=== PATIENT | female | born 1940 | race Caucasian/White ===

== ENCOUNTER 2016-06-24 17:45 | Emergency (ER) | payer MEDICARE, BC ==
[2016-06-24 18:09] LABS: BASOPHILS 0.7 % (0.0-2.0); EOSINOPHILS 1.2 % (0.0-6.0); EOSINOPHILS# 0.1 X 10^3uL (0.0-0.4); HEMATOCRIT 42.7 % (36.0-48.0); HEMOGLOBIN 14.5 g/dL (12.0-16.0); LYMPHOCYTES 31.8 % (20.0-40.0); LYMPHOCYTES# 2.1 X 10^3uL (0.8-3.8); MEAN CELL VOLUME 88.7 fL (84.0-102.0); MEAN CORPUSCULAR HEMOGLOBIN 30.2 pg (29.0-35.0); MEAN PLATELET VOLUME 8.9 fL (7.4-10.4); MONOCYTES 10.7 % (2.0-10.0); MONOCYTES# 0.7 X 10^3uL (0.2-1.0); NEUTROPHILS 55.6 % (54.0-75.0); NEUTROPHILS# 3.8 X 10^3uL (2.6-6.7); PLATELET COUNT 265 X 10^3uL (130-440); RED BLOOD COUNT 4.81 X 10^6uL (4.20-6.10); RED CELL DISTRIBUTION WIDTH 13.3 % (11.5-14.5); WHITE BLOOD COUNT 6.7 X 10^3uL (3.9-10.7)
[2016-06-24 18:17] LABS: BLOOD UREA NITROGEN 20 mg/dL (7-17); CALCIUM 9.6 mg/dL (8.4-10.2); CHLORIDE 105 mmol/L (98-107); CREATININE 0.8 mg/dL (0.5-1.0); EST GLOMERULAR FILTRATION RATE > 60 mL/min; GLUCOSE 93 mg/dL (70-100); POTASSIUM 4.2 mmol/L (3.5-5.1); SODIUM 143 mmol/L (137-145)
[2016-06-24 18:19] LABS: PARTIAL THROMBOPLASTIN TIME 26 sec (24-38)
--- NOTE | 2016-06-24 19:13 | ER NURSING DOCUMENTATION ---
Nurse's Notes [facility], [place] Name:Phyllis Pennington Age:75 yrs Sex:Female :1940 Arrival Date:06/24/2016 Time:17:45 BedTrauma A Private MD: Diagnosis:Cerebrovascular Accident (CVA)-vs. TIA Presentation: 06/24 17:46 Acuity: JOON 2 la 17:46 Presenting complaint: Patient states: at 1530 lost balance but did not fall, states she la was able to speak what she was thinking, but felt her right side was weak and had a facial droop. Upon arrival pt speech clear, no facial droop, right leg weaker than left. Accu check in field 89. Transition of care: Home. No acute neurological deficit is noted. 17:46 Method Of Arrival: EMS: 420 la Triage Assessment: 18:12 The onset of the patients symptoms was less than three hours ago. General: Appears la comfortable, Behavior is appropriate for age, cooperative. Pain: Denies pain. EENT: No deficits noted. Neuro: Level of Consciousness is awake, alert, obeys commands, Oriented to person, place, time, event, Data Entry Coordinator are equal bilaterally Moves all extremities. right leg weaker than left. Speech is normal, Facial symmetry appears normal, Pupils are PERRLA, Reports weakness in right leg. Cardiovascular: No deficits noted. Rhythm is sinus rhythm Chest pain is denied. Respiratory: Airway is patent Trachea midline Respiratory effort is even, unlabored, Respiratory pattern is regular, symmetrical. GI: No deficits noted. : No deficits noted. Derm: No deficits noted. Musculoskeletal: No deficits noted. Historical: - Allergies: Levaquin IV; IODINEIODINE CONTAINING; - Home Meds: 1. Lisinopril Oral 2. Remuron 3. Imipramine Oral 4. levothyroxine oral - PMHx: Brain aneurysm in 1970's; HYPERTENSION; Subconjunctival Hemorrhage (eye)(June 16, 2016); HYPOTHYROIDISM; - PSHx: HYSTERECTOMY; CHOLECYSECTOMY; - Tetanus: < 10 years. - Ebola Screening: : Patient negative for fever greater than or equal to 101.5 degrees Fahrenheit, and additional compatible Ebola Virus Disease symptoms. - Immunization history: Pneumococcal vaccine is up to date, Flu Vaccine < 1 year. - Social history: Smoking status: Patient states former smoker of tobacco. Screenin:16 Infectious Disease Risk None. Abuse screen: Denies threats or abuse. Nutritional la screening: No deficits noted. Assessment: 17:46 Reassessment: straight to CT, pt A & Ox3, speech clear, able to move herself over to CT la table on own, right leg a bit weaker than left. smile symmetrical. Hand grasps equal. 18:16 See Triage Assessment done by same RN. la Vital Signs: 17:46 BP 166 / 87 LA Sitting; Pulse 88; Resp 18; Temp 98.3(O); Pulse Ox 93% ; Weight 65.77 kg la (R); Height 5 ft. 5 in. (165.10 cm) (R); Pain 0/10; 17:56 BP 173 / 90 Sitting; Pulse 79; Resp 18; Pulse Ox 96% on R/A; Pain 0/10; la 18:17 BP 156 / 85 RA Sitting; Pulse 91; Resp 18; Pulse Ox 93% on R/A; la 17:46 Body Mass Index 24.13 (65.77 kg, 165.10 cm) la Ilana Coma Score: 18:52 Eye Response: spontaneous(4). Verbal Response: oriented(5). Motor Response: obeys cd commands(6). Total: 15. NIH Stroke Scale Scores: 17:46 NIHSS Score: 1 la ED Course: 17:46 Patient arrived in ED. ds 17:51 Baldemar Olivo MD is Attending Physician. cd 18:04 Brenda Duong is Primary Nurse. la 18:09 Triage completed. la 18:09 EKG done. (by ED staff). la 18:16 Valuables Remains with patient Patient has correct armband on for positive la identification. Placed in gown. Bed in low position. Call light in reach. Side rails up X2. library monitor on. Pulse ox on. NIBP on. Verbal reassurance given. Warm blanket given. Pillow given. 18:17 Labs drawn. By EMS. Maintain field IV. Site clean & dry. Gauge & site: 20g left wrist. la 18:20 EKG attached cb Administered Medications: No medications were administered Outcome: 18:19 Transferred: Patient will be transferred to: [facility]. Facility la Acceptance Time: June 24, 2016 at 18:11 Patient's face sheet was faxed to accepting facility. Face Sheet included patient's name, address, age, gender, contact information and insurance information. Patient will be transported by: [facility] ground. Report called to: ED senior ruby developer Faye Nurse and Physician Charting and Notes were sent to Accepting Facility. All tests and/or procedures with results, if applicable, were sent to accepting facility. 18:19 Condition: stable 18:19 Discharge Assessment: Patient awake, alert and oriented x 3. No cognitive and/or functional deficits noted. Patient verbalized understanding of disposition instructions. 19:05 ER care complete, transfer ordered by . deon 19:13 Patient left the ED. vannessa NIH Stroke Scale - NIH Stroke Score Date: 06/24/2016 Time: 17:46 Total Score = 1 1a. Level of Consciousness (LOC) - 0(Alert) 1b. Level of Consciousness (LOC) (Year & Age) - 0(Both) 1c. LOC Commands (Open & Closes Eyes/Bench Scientist) - 0(Both) 2. Best Gaze (Lateral Gaze Paresis) - 0(Normal) 3. Visual Field Loss - 0(No visual loss) 4. Facial Palsy - 0(Normal) 5a. Left Arm: Motor (10-second hold) - 0(No drift) 5b. Right Arm: Motor (10-second hold) - 0(No drift) 6a. Left Leg: Motor (5-second hold ? always test supine) - 0(No drift) 6b. Right Leg: Motor (5-second hold ? always test supine) - 1(Drift) 7. Limb Ataxia (finger/nose & heel/felix ? test with eyes open) - 0(Absent) 8. Sensory Loss (pinprick arms/legs/face) - 0(Normal) 9. Best Language: Aphasia (description/naming/reading) - 0(No aphasia) 10. Dysarthria (speech clarity ? read or repeat words) - 0(Normal) 11. Extinction and Inattention (visual/tactile/auditory/spatial/personal) - 0(No abnormality) Initials: la Signatures: Faye Dumont, RN RN cb Srot, Clarice, Reg Reg Baldemar Verdin MD MD cd Norman, David dnn Alexander, Linda la
--- NOTE | 2016-06-24 19:14 | ER PHYSICIAN DOCUMENTATION ---
Physician Documentation [facility] Name:Phyllis Pennington Age:75 yrs Sex:Female :1940 Arrival Date:06/24/2016 Time:17:45 BedTrauma A Private MD: Baldemar Serna Disposition: 06/24 19:04 Chart complete. cd Disposition: 06/24/16 19:05 Transfer ordered to [facility]. Diagnosis is Cerebrovascular Accident (CVA) - vs. TIA. - Reason for transfer: Higher level of care. - Accepting physician is Dr. Carey, [facility] ED. - Condition is Fair. - Problem is new. - Symptoms have improved. COBRA Form completed? Yes Transfer - Mode of Transportation Ambulance HPI: 17:50 This 75 yrs old Female presents to ER via EMS with complaints of S/S of cd Possible Stroke. 17:50 The patient's problem is reported as difficulty walking, off balance, due to weakness, cd a facial droop, on right, near the corner of her mouth, weakness, in the right lower extremity. Onset: The symptom(s)/episode began/occurred acutely, at 15:30. Duration: This was a single incident, The episode is continuous, but has improved en-route to the hospital. Context: the episode(s) was witnessed, by no one, occurred at home, occurred while the patient was at rest, Possible contributing factors include: patient reports having an brain aneurysm on the right side of the brain, dx'd by Cerebral Angiography in [facility]. She has never had an ICH, SAH or brain surgery. She has never had a TIA or a CVA. She has no Hx of Atrial Fibrillation. The symptoms are alleviated by nothing. The symptoms are aggravated by nothing. Associated signs and symptoms: Pertinent negatives: abdominal pain, blurred vision, chest pain, confusion, diaphoresis, headache, nausea, numbness, palpitations, shortness of breath, vomiting. Severity of symptoms: At their worst the symptoms were moderate in the emergency department the symptoms have improved markedly. The patient was Hypertensive at home with a BP of 188/120 on EMS first arrival. On arrival to the ED it had come down to 141/83. Her initial NIHSS score is 1.. Historical: - Allergies: Levaquin IV; IODINEIODINE CONTAINING; - Home Meds: 1. Lisinopril Oral 2. Remuron 3. Imipramine Oral 4. levothyroxine oral - PMHx: Brain aneurysm in 1970's; HYPERTENSION; Subconjunctival Hemorrhage (eye)(June 16, 2016); HYPOTHYROIDISM; - PSHx: HYSTERECTOMY; CHOLECYSECTOMY; - Tetanus: < 10 years. - Ebola Screening: : Patient negative for fever greater than or equal to 101.5 degrees Fahrenheit, and additional compatible Ebola Virus Disease symptoms. - Immunization history: Pneumococcal vaccine is up to date, Flu Vaccine < 1 year. - Social history: Smoking status: Patient states former smoker of tobacco. ROS: 18:15 ENT: Negative for injury, pain, epistaxis and discharge. cd Neck: Negative for injury, pain, stiffness and swelling. Cardiovascular: Negative for chest pain, palpitations, edema and pleuritic pain. Respiratory: Negative for shortness of breath, dyspnea on exertion, cough, sputum production, wheezing, hemoptysis and pleuritic chest pain. Abdomen/GI: Negative for abdominal pain, nausea, vomiting, diarrhea, constipation, distension, melena, hematochezia and hematemesis. Back: Negative for injury, pain or muscle spasms. : Negative for injury, bleeding, discharge, dysuria, frequency, urgency and swelling. MS/Extremity: Negative for injury, deformity, edema, calf tenderness, pain or coldness. 18:15 Skin: Negative for injury, rash, itching and discoloration. cd 18:15 Constitutional: Negative for chills, fever, poor PO intake. 18:15 Neuro: Positive for dizziness, gait disturbance, weakness, of the right side of mouth and right leg, Negative for altered mental status, headache, loss of consciousness, speech changes, syncope, near syncope, tingling, visual changes. 18:15 All other systems are negative. Exam: Head/Face: Normocephalic, atraumatic. Eyes: Pupils equal round and reactive to light, extra-ocular motions intact. Lids and lashes normal. Conjunctiva and sclera are non-icteric and not injected. Cornea within normal limits. Periorbital areas with no swelling, redness, or edema. ENT: Nares patent. No nasal discharge, no septal abnormalities noted. Tympanic membranes are normal and external auditory canals are clear. Oropharynx with no redness, swelling, or masses, exudates, or evidence of obstruction, uvula midline. Mucous membranes moist. Neck: Trachea midline, no thyromegaly or masses palpated, and no cervical lymphadenopathy. Supple, full range of motion without nuchal rigidity, or vertebral point tenderness. No Meningismus. Chest/axilla: Normal chest wall appearance and motion. Nontender with no deformity. No lesions are appreciated. Cardiovascular: Regular rate and rhythm with a normal S1 and S2. No gallops, murmurs, or rubs. Normal PMI, no JVD. No pulse deficits. Respiratory: Lungs have equal breath sounds bilaterally, clear to auscultation and percussion. No rales, rhonchi or wheezes noted. No increased work of breathing, no retractions or nasal flaring. Abdomen/GI: Soft, non-tender, with normal bowel sounds. No distension or tympany. No guarding or rebound. No evidence of tenderness throughout. Back: No spinal tenderness. No costovertebral tenderness. Full range of motion. Skin: Warm, dry with normal turgor. Normal color with no rashes, no lesions, and no evidence of cellulitis. 18:52 MS/ Extremity: Pulses equal, no cyanosis. Neurovascular intact. Full, normal range cd of motion. 18:52 Constitutional: The patient appears alert, awake, non-diaphoretic, non-toxic, well developed, well nourished, anxious. 18:52 Neuro: Orientation: appropriate for stated age, to person, place & time. Mentation: is normal, lucid, Memory: is normal, Cranial nerves: CN II- XII are normal as tested, Cerebellar function: is grossly normal, except right leg heel to felix a bit unsteady, Motor: moves all fours, strength is 5/5 in the in all other extremities., strength is 4/5 in the right leg, Sensation: is normal, no obvious gross deficits, Gait: not tested. seizure activity, is not displayed by the patient. Vital Signs: 17:46 BP 166 / 87 LA Sitting; Pulse 88; Resp 18; Temp 98.3(O); Pulse Ox 93% ; Weight 65.77 kg la (R); Height 5 ft. 5 in. (165.10 cm) (R); Pain 0/10; 17:56 BP 173 / 90 Sitting; Pulse 79; Resp 18; Pulse Ox 96% on R/A; Pain 0/10; la 18:17 BP 156 / 85 RA Sitting; Pulse 91; Resp 18; Pulse Ox 93% on R/A; la 17:46 Body Mass Index 24.13 (65.77 kg, 165.10 cm) la NIH Stroke Scale Scores: 17:46 NIHSS Score: 1 la Ilana Coma Score: 18:52 Eye Response: spontaneous(4). Verbal Response: oriented(5). Motor Response: obeys cd commands(6). Total: 15. MDM: 17:51 Patient medically screened. cd 17:56 Data interpreted: Pulse oximetry: on room air is 94 %. Interpretation: normal. cd 18:00 Differential diagnosis: CVA, TIA, metabolic disorder, ICH or Hypertensive Emergency. 18:11 Physician consultation: Dr. Cherry SIMMONS was called at 18:05, was contacted at 18:08, regarding admission, to [facility] ED, consult, patient's condition, need to come to ED to see patient, need to evaluate the patient as soon as possible, and will see patient in ED, shortly, after a discussion of the case, a recommendation for transfer for higher level of care is made. 18:15 Data reviewed: vital signs, nurses notes, EMS record, old medical records, EKG, radiologic studies, CT scan, and as a result, I will *Transfer Patient. 18:20 EKG attached 18:20 Neurological re-evaluation: all normal except: motor exam: right leg, still 4/5 cd strength. Counseling: I had a detailed discussion with the patient and/or guardian regarding: the historical points, exam findings, and any diagnostic results supporting the discharge/admit diagnosis, radiology results, the need to transfer to another facility, [facility] specialist. 18:25 Test interpretation: by ED physician or midlevel provider: Dr. Manny Bojorquez, [facility] Radiologist called and reported the CT Scan was normal. No CVA or ICH.. ECG:. 19:05 ED course: We were unable to fly the patient by Helicopter because of weather.. cd 06/24 18:11 Order name: CBC AUTO DIF, MDIF/RMOR IF IND; Complete Time: 18:56 EDMS 06/24 18:56 Interpretation: Normal. cd 06/24 18:18 Order name: BASIC METABOLIC PANEL; Complete Time: 18:56 EDMS 06/24 18:56 Interpretation: Normal. cd 06/24 18:20 Order name: PROTIME/INR; Complete Time: 18:56 EDMS 06/24 18:56 Interpretation: Normal. cd 06/24 18:20 Order name: PARTIAL THROMBOPLASTIN TIME; Complete Time: 18:56 EDMS 06/24 18:56 Interpretation: Normal. cd 06/24 17:52 Order name: 12-lead EKG; Complete Time: 18:38 cd 06/24 17:52 Order name: Continuous Cardiac Monitoring; Complete Time: 18:38 cd 06/24 17:52 Order name: I & O; Complete Time: 18:38 cd 06/24 17:52 Order name: NIH Stroke Scale; Complete Time: 18:38 cd 06/24 17:52 Order name: NPO; Complete Time: 18:38 cd 06/24 17:52 Order name: Oxygen; Complete Time: 18:38 cd 06/24 17:52 Order name: Pulse Ox Continuous; Complete Time: 18:38 cd 06/24 17:52 Order name: Accucheck; Complete Time: 18:38 cd 06/24 17:52 Order name: Elevate HOB 30 degrees; Complete Time: 18:38 cd 06/24 17:52 Order name: IV saline lock X2; Complete Time: 18:38 cd EC:10 Rate is 82 beats/min. Rhythm is regular. [place] interval is normal. QRS interval is normal. cd QT interval is normal. Q waves are Present in leads III, aVF. T waves are Normal. No ST changes noted. Clinical impression: Normal ECG, No evidence of ischemia, and Possible Old, Inferior Infarct. Interpreted by me. Dispensed Medications: No medications were administered NIH Stroke Scale - NIH Stroke Score Date: 06/24/2016 Time: 17:46 Total Score = 1 1a. Level of Consciousness (LOC) - 0(Alert) 1b. Level of Consciousness (LOC) (Year & Age) - 0(Both) 1c. LOC Commands (Open & Closes Eyes/Drafter Heating And Ventilating) - 0(Both) 2. Best Gaze (Lateral Gaze Paresis) - 0(Normal) 3. Visual Field Loss - 0(No visual loss) 4. Facial Palsy - 0(Normal) 5a. Left Arm: Motor (10-second hold) - 0(No drift) 5b. Right Arm: Motor (10-second hold) - 0(No drift) 6a. Left Leg: Motor (5-second hold ? always test supine) - 0(No drift) 6b. Right Leg: Motor (5-second hold ? always test supine) - 1(Drift) 7. Limb Ataxia (finger/nose & heel/felix ? test with eyes open) - 0(Absent) 8. Sensory Loss (pinprick arms/legs/face) - 0(Normal) 9. Best Language: Aphasia (description/naming/reading) - 0(No aphasia) 10. Dysarthria (speech clarity ? read or repeat words) - 0(Normal) 11. Extinction and Inattention (visual/tactile/auditory/spatial/personal) - 0(No abnormality) Initials: vannessa Signatures: Faye Dumont, RN RN Baldemar Gary MD MD cd Alexander, Linda la
--- NOTE | 2016-06-25 10:33 | CT REPORT ---
EXAM: CT brain without contrast. INDICATION: Mild right leg weakness. COMPARISON: None. TECHNIQUE: Contiguous 4.8 mm thick scans were obtained from the vertex through the foramen magnum. FINDINGS: The parenchymal volume is adequately maintained. There is no space-occupying mass focal parenchymal deficit or midline shift. The periventricular white matter and deep white matter adequately maintained. There is no pathologic extra-axial fluid collection or intracranial hemorrhage. The orbits appear unremarkable. The visualized portions of the paranasal sinuses and mastoid air cells are clear. There is no skull fracture or depression. IMPRESSION: 1. Negative CT of the brain without contrast. No intracranial hemorrhage. Results were called to Dr. Olivo at 6:25 PM. And Final Electronic Signature: This report was electronically signed by Richardson Bojorquez MD on 06/24/2016 6:27 PM. rick / KATIA
== END 2016-06-24 19:14 | disposition short-term general hospital (02) ==
LOC: ER 17:45
DX: I63.50 Cerebral infarction due to unspecified occlusion or stenosis of unspecified cerebral artery (principal); I10 Essential (primary) hypertension; R29.701 NIHSS score 1; Z86.79 Personal history of other diseases of the circulatory system; Z79.899 Other long term (current) drug therapy; Z99.89 Dependence on other enabling machines and devices; Z74.3 Need for continuous supervision
CPT/HCPCS: 70450; 80048; 85025; 85610; 85730; 93005; 93010; 99285; A0425; A0427

== ENCOUNTER 2016-06-27 13:38 | Inpatient (IN) | payer MEDICARE, BC ==
[2016-06-27] MEDS: BISACODYL 10 MG SUPP.RECT PR SCH ×2 (09:00→20:55)
[~2016-06-27 13:38] MED LIST: ACETAMINOPHEN 325 MG TABLET PO PRN; CAFFEINE 200 MG IV ONE; ENALAPRILAT DIHYDRATE 1.25 MG/ML VIAL IV PRN; GLYCERIN ADULT 2 GM SUPP.RECT RECTAL PRN; HOME MEDICATION LIST NEEDED 1 EA EACH MC ONE; MAGNESIUM HYDROXIDE 30 ML UDC PO PRN; traMADol HCL 50 MG TABLET PO PRN
[2016-06-27] MEDS: ATORVASTATIN CALCIUIM 40 MG TABLET PO SCH (20:58)
[2016-06-27] MEDS: [UNRECOGNIZED DRUG - REMARK] PO SCH (21:43)
[2016-06-27] MEDS: MIRTAZAPINE 15 MG TAB PO SCH (21:45)
[2016-06-28] MEDS ORDERED: LISINOPRIL 10 MG TABLET PO ONE (07:57)
[2016-06-28 12:24] LABS: ALKALINE PHOSPHATASE 78 U/L (38-126); ALT 47 U/L (9-52); AST 27 U/L (14-36); BILIRUBIN, DIRECT 0.2 mg/dL (0.0-0.4); BILIRUBIN, TOTAL 0.5 mg/dL (0.2-1.3); BLOOD UREA NITROGEN 27 mg/dL (7-17); CALCIUM 9.5 mg/dL (8.4-10.2); CHLORIDE 107 mmol/L (98-107); CREATININE 0.8 mg/dL (0.5-1.0); EST GLOMERULAR FILTRATION RATE > 60 mL/min; FREE T4 1.3 ng/dL (0.78-2.19); GLUCOSE 100 mg/dL (70-100); POTASSIUM 4.5 mmol/L (3.5-5.1); SODIUM 143 mmol/L (137-145); THYROID STIMULATING HORMONE 2.05 uIU/mL (0.47-4.68)
[2016-06-28] MEDS: LEVOTHYROXINE 50 MCG TABLET PO SCH (12:24)
[2016-06-28] MEDS: LISINOPRIL 10 MG TABLET PO SCH (12:25)
[2016-06-28] MEDS: BISACODYL 10 MG SUPP.RECT PR SCH ×2 (12:25→20:14)
[2016-06-28 12:30] LABS: BASOPHILS 0.7 % (0.0-2.0); EOSINOPHILS 2.7 % (0.0-6.0); EOSINOPHILS# 0.1 X 10^3uL (0.0-0.4); HEMATOCRIT 42.5 % (36.0-48.0); HEMOGLOBIN 14.3 g/dL (12.0-16.0); LYMPHOCYTES 31.9 % (20.0-40.0); LYMPHOCYTES# 1.7 X 10^3uL (0.8-3.8); MEAN CELL VOLUME 88.5 fL (84.0-102.0); MEAN CORPUS. HGB CONCENTRATION 33.7 g/dL (32.0-36.0); MEAN CORPUSCULAR HEMOGLOBIN 29.8 pg (29.0-35.0); MEAN PLATELET VOLUME 8.8 fL (7.4-10.4); MONOCYTES 13.3 % (2.0-10.0); MONOCYTES# 0.7 X 10^3uL (0.2-1.0); NEUTROPHILS 51.4 % (54.0-75.0); NEUTROPHILS# 2.8 X 10^3uL (2.6-6.7); PLATELET COUNT 232 X 10^3uL (130-440); RED BLOOD COUNT 4.81 X 10^6uL (4.20-6.10); RED CELL DISTRIBUTION WIDTH 13.3 % (11.5-14.5); WHITE BLOOD COUNT 5.3 X 10^3uL (3.9-10.7)
[2016-06-28] MEDS: [UNRECOGNIZED DRUG - REMARK] PO SCH (20:14)
[2016-06-28] MEDS: MIRTAZAPINE 15 MG TAB PO SCH (20:15)
[2016-06-28] MEDS: ATORVASTATIN CALCIUIM 40 MG TABLET PO SCH (20:15)
[2016-06-28 22:02] LABS: URINE MUCUS NONE SEEN (Up to 25%); URINE RBC NONE SEEN (0-5/hpf); URINE SQUAMOUS EPITHELIAL CELL NONE SEEN (<= 15/hpf)
[2016-06-28 22:50] LABS: URINE APPEARANCE CLEAR; URINE COLOR YELLOW; URINE LEUKOCYTE ESTERASE NEGATIVE (NEGATIVE); URINE NITRITE NEGATIVE (NEGATIVE); URINE PH 5.5 (5-7); URINE SPECIFIC GRAVITY 1.015 (0.001-1.035)
[2016-06-28 22:51] LABS: URINE BILIRUBIN NEGATIVE (NEGATIVE); URINE BLOOD NEGATIVE (NEGATIVE); URINE GLUCOSE NORMAL (NEGATIVE); URINE KETONE NEGATIVE (NEGATIVE); URINE PROTEIN NEGATIVE (NEG - TRACE); URINE UROBILINOGEN 0.2mg/dL (Normal) (NEG-1mg/dL)
[2016-06-28 22:53] LABS: URINE BACTERIA NONE SEEN (<10/hpf); URINE WBC 0-4/hpf (0-4/hpf)
[2016-06-29] MEDS: LEVOTHYROXINE 50 MCG TABLET PO SCH (06:15)
[2016-06-29] MEDS ORDERED: CALCIUM CARBONATE 300 MG TAB.CHEW PO PRN (08:50)
[2016-06-29] MEDS: POLYETHYLENE GLYCOL 3350 17 GM POWD.PACK PO PRN (08:55)
[2016-06-29] MEDS: LISINOPRIL 10 MG TABLET PO SCH (08:56)
[2016-06-29] MEDS: BISACODYL 10 MG SUPP.RECT PR SCH (08:57)
--- NOTE | 2016-06-29 19:30 | HISTORY & PHYSICAL ---
DATE OF ADMISSION: 06/27/16 ATTENDING PHYSICIAN: Estrada Rodriguez MD REASON FOR ADMISSION: Swing bed for rehabilitation after lacunar stroke. 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 She had a history of comorbid hypertension, dyslipidemia, impaired glucose tolerance and hypothyroidism. She had been doing well until 3 weeks prior to admission when she noted intermittent periods where she would lose her balance and had a tendency to fall backwards. She felt that her smile was still symmetric and that she had no difficulty with articulation, and did not feel that she needed to be seen at this time. Over the ensuing several weeks, she developed some intermittent palpitations and hot flashes and then on the day of admission, she was seen in the Emergency Room, and was noted to have a facial droop with a facial asymmetry and right arm as well as leg weakness. A CT scan was obtained and was unremarkable, but with these deficits, she was felt to likely have a transient ischemic attack versus stroke and was subsequently transferred to [facility] where she underwent studies including an echocardiogram that showed an ejection fraction of 60%, stage 1 diastolic dysfunction, trace aortic incompetence with trace mitral and tricuspid incompetence, and during that procedure, she had a short run of paroxysmal supraventricular tachycardia which was symptomatic. She also underwent MRI scanning with MRA. She had a negative MRA but was noted on MRI to have T2 signal abnormalities throughout, query atypical demyelination and a left posterior capsule lacunar infarction. Her blood pressure was controlled initially with Lisinopril, and she was started on baby aspirin, and was evaluated by Speech and Language Therapy and had a carotid duplex which was reported as unremarkable and gradually improved as far as her vitals control and movement of her right upper and lower extremities. Her facial droop resolved , and her articulation again was never abnormal. She underwent a bedside speech therapy evaluation which was safe for all consistency food and was started on a cardiac prudent diet. She now has been transferred from [facility] to [facility] for ongoing rehabilitation. She feels markedly improved and states extremely edwar and very blessed. She notices continued intermittent palpitations and notes that she was told that she had an abnormal telemetry at [facility] for which they wanted to pursue an outpatient cardiology evaluation with event monitor. She has no cough , cold, congestion. No fever. No chills or sweats. She has had headache which has abated since returning to [place]. There is no abdominal pain. No diarrhea or constipation. No dysuria. REVIEW OF SYSTEMS: Review of systems is otherwise unremarkable. ALLERGIES: She is allergic to Fluoroquinolones as well as iodinated and gadolinium contrast. FAMILY HISTORY: Bladder cancer. SOCIAL HISTORY: Former smoker who quit in 2008 but query less than a 20-pack-a- year smoking. Occasional alcohol, a glass of wine or 2 during the week. She is a retired teacher. She is a full code. PAST SURGICAL HISTORY 1. Hysterectomy. 2. Cholecystectomy. 3. Cataract surgeries. PRIOR DIAGNOSTIC STUDIES: Duplex of her carotids showing on the left side a soft plaque. Echocardiogram in 08/2010, she had ejection fraction 60% with diastolic dysfunction and trace and valvular disease with repeat at [facility] corroborated ejection fraction around 60%, diastolic dysfunction and valvular disease as well as paroxysmal supraventricular tachycardia. An EEG in 2009 was unremarkable. An exercise stress test in 2010 was normal. An MRI of brain stem in 2010, showed an aneurysm. Repeat MRI/MRA at [facility] did not show vascular disease, but did show T2 flare changes as well as lacunar infarction. She did have a prior sleep study with an apnea-hypopnea index of 7-13 depending on position, and had been started on a mandibular advancement device by Dr. Bhatt. Remainder of her healthcare maintenance is current. MEDICATIONS AT TRANSFER Lisinopril 10 mg per day. Aspirin 81 mg per day. Levothyroxine 50 mcg per day. CURRENT MEDICATIONS Lisinopril of 10 mg per day along Levothyroxine 50 mcg daily. Atorvastatin 40 mg per day Metoprolol 12 mg b.i.d. Enalapril 0.65 mg IV q.6 hours as needed for hypertension. PHYSICAL EXAMINATION VITAL SIGNS: Heart rate 72 and regular. Blood pressure 136/82, respiratory rate 14. She is afebrile and she is saturating greater than 92% on room air. GENERAL: Pleasant in no apparent distress. No jaundice, anemia, cyanosis, clubbing or lymphadenopathy. NECK: Supple with no masses or bruits are appreciated. CARDIAC: S1, S2 without murmur. RESPIRATORY: Good air entry into the bases. No adventitial sounds. ABDOMEN: Soft, nontender. No masses are appreciated. Bowel sounds are normal. EXTREMITIES/NEURO: She has facial symmetry without smiling, but with smiling note right lower facial hemiparesis with asymmetric smile. Remainder of cranial nerves are otherwise intact. She has a right pronator drift, as well as right upper extremity dysmetria with pass pointing. Her power is 5/5 in her upper extremities with exception of her right tricep is 4+/5. Negative Hoffmans finding and palmomental reflexes. Extremities show 5/5 power with exception of right foot dorsiflexion, she has an extensor reflex on the right and no clonus is noted. Sensation is grossly intact. LABORATORY DATA: Pending. ASSESSMENT 1. Status post lacunar stroke likely related to hypertension. 2. Dyslipidemia. 3. Hypertension. 4. Hypothyroidism. 5. Impaired glucose tolerance. 6. Paroxysmal supraventricular tachycardia. PLAN 1. Will continue Lisinopril. I have added Metoprolol and aspirin as well as Lipitor as described above. Will continue to use medications. Physical therapy and occupational therapy evaluation during this hospitalization. Will recheck lipids as an outpatient. Will continue to monitor hypertension, ideally keep close to 130/80s. Regarding her hypothyroidism and paroxysmal supraventricular tachycardia, I have requested a repeat TSH and free-T4. If this shows decreased TSH, will either hold or decrease dosing. Hemoglobin is currently pending, and will continue a cardiac prudent diet with no concentrated sweets as well. Have requested telemetry and a baseline EKG with recent hospitalization showing aberrant conduction. If telemetry is unremarkable during this hospitalization, have requested a 30-day event monitor and Cardiology follow up after discharge. Patient is a full code. Care will be covered by Dr. Aguirre throughout the weekend, and I will resume care on Thursday morning. KATIA
[2016-06-29] MEDS ORDERED: BISACODYL 10 MG SUPP.RECT RECTAL PRN (20:02)
[2016-06-29] MEDS: [UNRECOGNIZED DRUG - REMARK] PO SCH (20:05)
[2016-06-29] MEDS: ATORVASTATIN CALCIUIM 40 MG TABLET PO SCH (20:06)
[2016-06-29] MEDS: MIRTAZAPINE 15 MG TAB PO SCH (20:07)
[2016-06-30] MEDS: LEVOTHYROXINE 50 MCG TABLET PO SCH (06:01)
--- NOTE | 2016-06-30 09:03 | PROGRESS NOTE: IM APSO ---
Assessment and Plan - Date of Encounter Date of Encounter: 06/30/16 (1) Left sided lacunar stroke Status: Acute Current Visit: No (2) Right hemiparesis Status: Acute Assessment and plan: continue swingbed, PT and DME likely home Wed with outpatient PT. Risk modification with ASA/Lipitor/metoprol/lisinopril Current Visit: No (3) Dyslipidemia Status: Chronic Assessment and plan: lipitor with recent stroke Current Visit: No (4) Hypertension Status: Chronic Assessment and plan: controlled on lisinopril/metoprolol Current Visit: No (5) Hypothyroid Status: Chronic Assessment and plan: compensated on synthroid Current Visit: No (6) PSVT (paroxysmal supraventricular tachycardia) Status: Suspected Assessment and plan: tele negative, arrange outpatient even monitor and will need stress test as well. Current Visit: No - Time Spent With Patient Total time spent with greater than 50% in coordination of care (as documented) at patient's floor/unit and/or counseling patient: Greater than 35 minutes IM: PN Subjective General: fatigue, good appetite, no anxiety, no depression, no confusion, no fever HEENT: no visual changes, no headache Cardiovascular: chest pain (describes tightness with food and gas, had been seen by chiropracter before stroke and had adjustments without benefit. No N/ diarphoresis with discomfort and not exertional. Seems exacerbated by orange juice.), palpitations (while evaluating patient nurse felt patient had tele abnormality, No CP/palp/N, No palp and HR regular and strong) Respiratory: no cough, no sputum Gastrointestinal: no abdominal pain, no nausea, no vomiting Musculoskeletal: weakness (using cane in left hand some weakness right leg and arm and some gait instability without fall (gets legs tangled and feels like going to fall)), no pain IM: PN Objective Exam - I&O/Vital Signs I&O: Intake & Output 06/29/16 06/30/16 06/30/16 21:59 05:59 13:59 Weight 65.5 kg Vital Signs: Last Vital Signs Temp 36.6 C 06/30/16 05:51 Pulse 78 06/30/16 05:51 Resp 13 06/30/16 05:51 BP 110/68 06/30/16 05:51 Pulse Ox 92 06/30/16 05:51 Oxygen Delivery Method Room Air - Constitutional General appearance: Present: average body habitus, cooperative. Absent: disheveled - Head Head exam: Present: atraumatic - Eye Eye exam: Present: EOMI - ENT ENT exam: Present: mucous membranes moist - Neck Neck exam: Present: full ROM. Absent: lymphadenopathy - Respiratory Respiratory exam: Present: CTAB - Cardiovascular Cardiovascular exam: Present: RRR - GI/Abdominal GI/Abdominal exam: Present: normal bowel sounds, soft. Absent: tenderness - Neurological Exam Neurological exam: Present: abnormal gait, alert, motor sensory deficit (4/5 right arm/leg and weakness, some dysmetria/past pointing) - Allied Health Notes Allied health notes reviewed: nursing - Lab Labs: Laboratory Last Values WBC 5.3 X 10^3uL (3.9-10.7) 06/28/16 05:52 RBC 4.81 X 10^6uL (4.20-6.10) 06/28/16 05:52 Hgb 14.3 g/dL (12.0-16.0) 06/28/16 05:52 Hct 42.5 % (36.0-48.0) 06/28/16 05:52 MCV 88.5 fL (84.0-102.0) 06/28/16 05:52 MCH 29.8 pg (29.0-35.0) 06/28/16 05:52 MCHC 33.7 g/dL (32.0-36.0) 06/28/16 05:52 RDW 13.3 % (11.5-14.5) 06/28/16 05:52 Plt Count 232 X 10^3uL (130-440) 06/28/16 05:52 MPV 8.8 fL (7.4-10.4) 06/28/16 05:52 Neutrophils % 51.4 % (54.0-75.0) L 06/28/16 05:52 Lymphocytes % 31.9 % (20.0-40.0) 06/28/16 05:52 Eosinophils % 2.7 % (0.0-6.0) 06/28/16 05:52 Basophils % 0.7 % (0.0-2.0) 06/28/16 05:52 Neutrophils # 2.8 X 10^3uL (2.6-6.7) 06/28/16 05:52 Lymphocytes # 1.7 X 10^3uL (0.8-3.8) 06/28/16 05:52 Monocytes 13.3 % (2.0-10.0) H 06/28/16 05:52 Monocytes # 0.7 X 10^3uL (0.2-1.0) 06/28/16 05:52 Eosinophils # 0.1 X 10^3uL (0.0-0.4) 06/28/16 05:52 Basophils # 0.0 X 10^3uL (0.0-0.1) 06/28/16 05:52 Sodium 143 mmol/L (137-145) 06/28/16 05:52 Potassium 4.5 mmol/L (3.5-5.1) 06/28/16 05:52 Chloride 107 mmol/L (98-107) 06/28/16 05:52 Carbon Dioxide 24 mmol/L (22-30) 06/28/16 05:52 BUN 27 mg/dL (7-17) H 06/28/16 05:52 Creatinine 0.8 mg/dL (0.5-1.0) 06/28/16 05:52 GFR Calculation > 60 mL/min 06/28/16 05:52 Glucose 100 mg/dL (70-100) 06/28/16 05:52 Hemoglobin A1c 6.1 % 06/28/16 05:52 Calcium 9.5 mg/dL (8.4-10.2) 06/28/16 05:52 Total Bilirubin 0.5 mg/dL (0.2-1.3) 06/28/16 05:52 Direct Bilirubin 0.2 mg/dL (0.0-0.4) 06/28/16 05:52 AST 27 U/L (14-36) 06/28/16 05:52 ALT 47 U/L (9-52) 06/28/16 05:52 Alkaline Phosphatase 78 U/L (38-126) 06/28/16 05:52 Total Protein 7.0 g/dL (6.3-8.2) 06/28/16 05:52 Albumin 4.0 g/dL (3.5-5.0) 06/28/16 05:52 TSH 2.05 uIU/mL (0.47-4.68) 06/28/16 05:52 Free T4 1.30 ng/dL (0.78-2.19) 06/28/16 05:52 Urine Color Yellow 06/28/16 21:50 Urine Appearance Clear 06/28/16 21:50 Urine pH 5.5 (5-7) 06/28/16 21:50 Ur Specific [place] 1.015 (0.001-1.035) 06/28/16 21:50 Urine Protein Negative (NEG - TRACE) 06/28/16 21:50 Urine Ketones Negative (NEGATIVE) 06/28/16 21:50 Urine Blood Negative (NEGATIVE) 06/28/16 21:50 Urine Nitrate Negative (NEGATIVE) 06/28/16 21:50 Urine Bilirubin Negative (NEGATIVE) 06/28/16 21:50 Urine Urobilinogen 0.2mg/dl (normal) (NEG-1mg/dL) 06/28/16 21:50 Ur Leukocyte Esterase Negative (NEGATIVE) 06/28/16 21:50 Urine RBC None seen (0-5/hpf) 06/28/16 21:50 Urine WBC 0-4/hpf (0-4/hpf) 06/28/16 21:50 Ur Squamous Epith Cells None seen (<= 15/hpf) 06/28/16 21:50 Urine Bacteria None seen (<10/hpf) 06/28/16 21:50 Urine Mucus None seen (Up to 25%) 06/28/16 21:50 Urine Glucose Normal (NEGATIVE) 06/28/16 21:50 Quality Questions - VTE Prophylaxis Assessment VTE Present on Admission?: No Patient at risk for venous thromboembolism?: No VTE Risk Level: Low Risk VTE Medical Contraindication: N/A-VTE Prophylaxis ordered
[2016-06-30] MEDS ORDERED: FAMOTIDINE 20 MG TABLET PO PRN (09:05)
[2016-06-30] MEDS ORDERED: WATER IRRIG 1,000 ML BOTTLE ONE (09:30)
[2016-06-30] MEDS: LISINOPRIL 10 MG TABLET PO SCH (09:46)
[2016-06-30] MEDS: ATORVASTATIN CALCIUIM 40 MG TABLET PO SCH (22:16)
[2016-06-30] MEDS: [UNRECOGNIZED DRUG - REMARK] PO SCH (22:16)
[2016-06-30] MEDS: MIRTAZAPINE 15 MG TAB PO SCH (22:16)
[2016-07-01] MEDS: LEVOTHYROXINE 50 MCG TABLET PO SCH (06:44)
[2016-07-01] MEDS: LISINOPRIL 10 MG TABLET PO SCH (08:06)
[2016-07-01] MEDS: [UNRECOGNIZED DRUG - REMARK] PO SCH (20:10)
[2016-07-01] MEDS: ATORVASTATIN CALCIUIM 40 MG TABLET PO SCH (20:11)
[2016-07-01] MEDS: MIRTAZAPINE 15 MG TAB PO SCH (20:13)
[2016-07-02] MEDS: LEVOTHYROXINE 50 MCG TABLET PO SCH (06:20)
[2016-07-02 06:25] VITALS: BP 121/67; PULSE 91; RESP 17; TEMP 98.2; O2SAT 94
--- NOTE | 2016-07-02 08:54 | PROGRESS NOTE: IM APSO ---
Assessment and Plan - Date of Encounter Date of Encounter: 07/02/16 (1) Left sided lacunar stroke Status: Acute Assessment and plan: will DC today, has home health arranged as well follow up for stress test and event monitor. She also liased with [employer] for meals and to check in on her intermittently. Current Visit: No (2) Right hemiparesis Status: Acute Assessment and plan: Risk modification with ASA/Lipitor/metoprol/lisinopril. DC today and has f/u next week Current Visit: No (3) Dyslipidemia Status: Chronic Assessment and plan: lipitor with recent stroke Current Visit: No (4) Hypertension Status: Chronic Assessment and plan: controlled on lisinopril/metoprolol Current Visit: No (5) Hypothyroid Status: Chronic Assessment and plan: compensated on synthroid Current Visit: No (6) PSVT (paroxysmal supraventricular tachycardia) Status: Suspected Assessment and plan: tele negative, arrange outpatient even monitor and will need stress test as well. Current Visit: No - Time Spent With Patient Total time spent with greater than 50% in coordination of care (as documented) at patient's floor/unit and/or counseling patient: Greater than 35 minutes IM: PN Subjective General: fatigue, good appetite, no anxiety, no depression, no confusion, no fever HEENT: no visual changes, no headache Cardiovascular: chest pain (describes tightness with food and gas, had been seen by chiropracter before stroke and had adjustments without benefit. No N/ diarphoresis with discomfort and not exertional. Seems exacerbated by orange juice. Overall seems a bit better today), no palpitations (while evaluating patient nurse felt patient had tele abnormality, No CP/palp/N, No palp and HR regular and strong) Respiratory: no cough, no sputum Gastrointestinal: bloating, no abdominal pain, no nausea, no vomiting Musculoskeletal: weakness (using cane in left hand some weakness right leg and arm and some gait instability without fall (gets legs tangled and feels like going to fall)), no pain Neurological: other (Notes today that this has been very stressful, some change in mood and notes looking at legacy some but without suicidal ideation is perseverating on and notes sleep worse feels she may benefit from changing meds some (notes remeron helps sleep as well imipramine and would consider increasing imipramine (current dose 50mg/hs)) IM: PN Objective Exam - I&O/Vital Signs I&O: Intake & Output 07/01/16 07/02/16 07/02/16 21:59 05:59 13:59 Weight 68 kg Vital Signs: Last Vital Signs Temp 36.8 C 07/02/16 06:23 Pulse 91 H 07/02/16 06:23 Resp 17 07/02/16 06:23 BP 121/67 07/02/16 06:23 Pulse Ox 94 07/02/16 06:23 Oxygen Delivery Method CPAP - Constitutional General appearance: Present: average body habitus, cooperative. Absent: disheveled - Head Head exam: Present: atraumatic - Eye Eye exam: Present: EOMI - ENT ENT exam: Present: mucous membranes moist - Neck Neck exam: Present: full ROM. Absent: lymphadenopathy - Respiratory Respiratory exam: Present: CTAB - Cardiovascular Cardiovascular exam: Present: RRR - GI/Abdominal GI/Abdominal exam: Present: normal bowel sounds, soft. Absent: tenderness - Neurological Exam Neurological exam: Present: abnormal gait, alert, motor sensory deficit (4/5 right arm/leg and weakness, some dysmetria/past pointing) - Allied Health Notes Allied health notes reviewed: nursing - Lab Labs: Laboratory Last Values WBC 5.3 X 10^3uL (3.9-10.7) 06/28/16 05:52 RBC 4.81 X 10^6uL (4.20-6.10) 06/28/16 05:52 Hgb 14.3 g/dL (12.0-16.0) 06/28/16 05:52 Hct 42.5 % (36.0-48.0) 06/28/16 05:52 MCV 88.5 fL (84.0-102.0) 06/28/16 05:52 MCH 29.8 pg (29.0-35.0) 06/28/16 05:52 MCHC 33.7 g/dL (32.0-36.0) 06/28/16 05:52 RDW 13.3 % (11.5-14.5) 06/28/16 05:52 Plt Count 232 X 10^3uL (130-440) 06/28/16 05:52 MPV 8.8 fL (7.4-10.4) 06/28/16 05:52 Neutrophils % 51.4 % (54.0-75.0) L 06/28/16 05:52 Lymphocytes % 31.9 % (20.0-40.0) 06/28/16 05:52 Eosinophils % 2.7 % (0.0-6.0) 06/28/16 05:52 Basophils % 0.7 % (0.0-2.0) 06/28/16 05:52 Neutrophils # 2.8 X 10^3uL (2.6-6.7) 06/28/16 05:52 Lymphocytes # 1.7 X 10^3uL (0.8-3.8) 06/28/16 05:52 Monocytes 13.3 % (2.0-10.0) H 06/28/16 05:52 Monocytes # 0.7 X 10^3uL (0.2-1.0) 06/28/16 05:52 Eosinophils # 0.1 X 10^3uL (0.0-0.4) 06/28/16 05:52 Basophils # 0.0 X 10^3uL (0.0-0.1) 06/28/16 05:52 Sodium 143 mmol/L (137-145) 06/28/16 05:52 Potassium 4.5 mmol/L (3.5-5.1) 06/28/16 05:52 Chloride 107 mmol/L (98-107) 06/28/16 05:52 Carbon Dioxide 24 mmol/L (22-30) 06/28/16 05:52 BUN 27 mg/dL (7-17) H 06/28/16 05:52 Creatinine 0.8 mg/dL (0.5-1.0) 06/28/16 05:52 GFR Calculation > 60 mL/min 06/28/16 05:52 Glucose 100 mg/dL (70-100) 06/28/16 05:52 Hemoglobin A1c 6.1 % 06/28/16 05:52 Calcium 9.5 mg/dL (8.4-10.2) 06/28/16 05:52 Total Bilirubin 0.5 mg/dL (0.2-1.3) 06/28/16 05:52 Direct Bilirubin 0.2 mg/dL (0.0-0.4) 06/28/16 05:52 AST 27 U/L (14-36) 06/28/16 05:52 ALT 47 U/L (9-52) 06/28/16 05:52 Alkaline Phosphatase 78 U/L (38-126) 06/28/16 05:52 Total Protein 7.0 g/dL (6.3-8.2) 06/28/16 05:52 Albumin 4.0 g/dL (3.5-5.0) 06/28/16 05:52 TSH 2.05 uIU/mL (0.47-4.68) 06/28/16 05:52 Free T4 1.30 ng/dL (0.78-2.19) 06/28/16 05:52 Urine Color Yellow 06/28/16 21:50 Urine Appearance Clear 06/28/16 21:50 Urine pH 5.5 (5-7) 06/28/16 21:50 Ur Specific [place] 1.015 (0.001-1.035) 06/28/16 21:50 Urine Protein Negative (NEG - TRACE) 06/28/16 21:50 Urine Ketones Negative (NEGATIVE) 06/28/16 21:50 Urine Blood Negative (NEGATIVE) 06/28/16 21:50 Urine Nitrate Negative (NEGATIVE) 06/28/16 21:50 Urine Bilirubin Negative (NEGATIVE) 06/28/16 21:50 Urine Urobilinogen 0.2mg/dl (normal) (NEG-1mg/dL) 06/28/16 21:50 Ur Leukocyte Esterase Negative (NEGATIVE) 06/28/16 21:50 Urine RBC None seen (0-5/hpf) 06/28/16 21:50 Urine WBC 0-4/hpf (0-4/hpf) 06/28/16 21:50 Ur Squamous Epith Cells None seen (<= 15/hpf) 06/28/16 21:50 Urine Bacteria None seen (<10/hpf) 06/28/16 21:50 Urine Mucus None seen (Up to 25%) 06/28/16 21:50 Urine Glucose Normal (NEGATIVE) 06/28/16 21:50
--- NOTE | 2016-07-02 09:01 | DC SUMMARY: IM Note ---
Discharge Summary: IM/Peds Provider: Date of Admission: 06/27/16 Admitting Provider: LONA BELLAMY Attending Provider: LONA BELLAMY Discharging Provider: LONA BELLAMY Primary Care Provider: Discharge Date: 07/02/16 Consults: 06/27/16 08:57 Nutrition/Dietary Consult [CONS] Routine Reason: Swingbed Admission Protocol - Diagnosis (1) Left sided lacunar stroke Status: Acute (2) Right hemiparesis Status: Acute (3) Dyslipidemia Status: Chronic (4) Hypertension Status: Chronic (5) Hypothyroid Status: Chronic (6) PSVT (paroxysmal supraventricular tachycardia) Status: Suspected - Time Spent with Patient Total time spent providing and/or coordinating discharge services: Discharge - Patient/Caregiver Discharge Instructions Activity Level: as tolerated, with cane and directions per PT Diet: cardiac prudent (no added salt, low fat) Follow up: LONA BELLAMY MD [Primary Care Provider] - 07/09/16 9:30 am RAY VEE MD [MD] - 07/08/16 8:50 am (THIS APPT IS NOT WITH DR VEE* THIS APPT IS FOR A STREE ECHO ONLY * TO CHECK IN AT THE CARDIOLOGY CLINIC ) Overall discharge status: patient is progressing back to baseline Home Medications: Imipramine HCl 50 mg PO HS #60 tablet Atorvastatin Calcium [Lipitor*] 20 mg PO DAILY #30 tablet metoprolol TARTRATE [Metoprolol Tartrate*] 12.5 mg PO BID #60 tablet Mirtazapine [Mirtazapine*] 15 mg PO HS #30 tablet Famotidine [Pepcid] 20 mg PO Q12H PRN #90 tablet PRN Reason: Gi Distress Lisinopril [Prinivil*] 10 mg PO DAILY #30 tablet Disposition: HOME, SELF-CARE Discharge Summary Data - Medication History Medication History: Home Medications Acetaminophen [Tylenol] 650 mg PO Q4H PRN 06/26/16 Cholecalciferol [Vitamin D*] 1,000 unit PO DAILY 06/26/16 Imipramine HCl 25 mg PO HS 06/26/16 Levothyroxine [Synthroid*] 50 mcg PO DAILY 06/26/16 Lisinopril [Prinivil*] 5 mg PO DAILY 06/26/16 Mirtazapine [Mirtazapine*] 7.5 mg PO HS 06/26/16 Multivitamins,Therapeutic [Thera] 1 udtab PO DAILY 06/26/16 Jeddo-3 Fatty Acids/Fish Oil [Jeddo 3 1,000 mg Softgel] 1 each PO DAILY Vit C/E/Zn/Coppr/Lutein/Zeaxan [Preservision Areds 2 Softgel] 1 each PO DAILY aspirin EC [Aspirin EC*] 81 mg PO DAILY 06/26/16 Atorvastatin Calcium [Lipitor*] 20 mg PO DAILY 06/27/16 Inpatient Medications 06/27/16 08:57 Acetaminophen [Tylenol] 650 mg PO Q6H PRN Glycerin Adult [Glycerin Adult Supp] 2 gm RECTAL DAILY PRN Magnesium Hydroxide [Milk of Magnesia] 30 ml PO DAILY PRN Polyethylene Glycol 3350 [miraLAX] 17 gm PO BID PRN 06/27/16 12:35 Enalaprilat Dihydrate [Vasotec] 0.625 mg IV Q6H PRN 06/27/16 12:39 traMADol HCL [Ultram] 50 mg PO Q6H PRN 06/27/16 21:00 Atorvastatin Calcium [Lipitor] 40 mg PO HS Imipramine 25 mg PO HS Mirtazapine [Remeron] 7.5 mg PO HS metoprolol TARTRATE [Lopressor] 12.5 mg PO BID 06/28/16 06:30 Levothyroxine [Synthroid] 50 mcg PO 0630 06/28/16 09:00 Lisinopril [Prinivil] 10 mg PO DAILY aspirin CHEW [Baby Aspirin Chewable] 81 mg PO DAILY 06/29/16 08:50 Calcium Carbonate [Tums X-Str] 600 mg PO Q4H PRN 06/29/16 20:02 Bisacodyl [Dulcolax] 10 mg RECTAL BID PRN 06/30/16 09:05 Famotidine [Pepcid] 20 mg PO Q12H PRN Procedures and tests throughout hospitalization: Completed Lab Orders 06/28/16 05:52 BASIC METABOLIC PANEL [CHEM] AMDRAW CBC AUTO DIF, MDIF/RMOR IF IND [HEM] AMDRAW FREE T4 [CHEM] AMDRAW HEPATIC PANEL [CHEM] AMDRAW Hemoglobin A1c [GLYCOSYLATED HGB] [CHEM] AMDRAW THYROID STIMULATING HORMONE [CHEM] AMDRAW 06/28/16 21:50 UA W/ MICRO -CULTURE IF IND [URINE] Routine Pending Orders 06/27/16 08:57 Admit: Swing Bed Routine Activity: Ambulate with Assist TID Cleanse minor skin tears w/NS DAILY Insert Carcamo Catheter IF BS>300MLS Obtain weight 0600 Patient may go out on pass PRN PRN Resuscitation Status Routine Titrate Oxygen TITRATE TO >90% Vital Signs ROUTINE VITALS (Q4H) Wedge cushion for positioning PRN Hand Coper Consult [CM] Routine Nutrition/Dietary Consult [CONS] Routine Acetaminophen [Tylenol] 650 mg PO Q6H PRN Glycerin Adult [Glycerin Adult Supp] 2 gm RECTAL DAILY PRN Magnesium Hydroxide [Milk of Magnesia] 30 ml PO DAILY PRN Polyethylene Glycol 3350 [miraLAX] 17 gm PO BID PRN 06/27/16 09:00 Cover minor skin tears with DAILYPRN Occupation Therapy Eval and Treat [OT] Routine 06/27/16 12:35 Enalaprilat Dihydrate [Vasotec] 0.625 mg IV Q6H PRN 06/27/16 12:39 traMADol HCL [Ultram] 50 mg PO Q6H PRN 06/27/16 14:41 Telemetry monitoring CONTINUOUS TELE 06/27/16 21:00 Atorvastatin Calcium [Lipitor] 40 mg PO HS Imipramine 25 mg PO HS Mirtazapine [Remeron] 7.5 mg PO HS metoprolol TARTRATE [Lopressor] 12.5 mg PO BID 06/27/16 Breakfast Cardiac [DIET] 06/28/16 06:30 Levothyroxine [Synthroid] 50 mcg PO 0630 06/28/16 09:00 Lisinopril [Prinivil] 10 mg PO DAILY aspirin CHEW [Baby Aspirin Chewable] 81 mg PO DAILY 06/28/16 13:53 Physical Therapy Plan of Care [PT] Routine 06/29/16 08:50 Calcium Carbonate [Tums X-Str] 600 mg PO Q4H PRN 06/29/16 20:02 Bisacodyl [Dulcolax] 10 mg RECTAL BID PRN 06/30/16 09:05 Famotidine [Pepcid] 20 mg PO Q12H PRN 06/30/16 12:35 Occupational Therapy Plan of Care [OT] Routine - Impressions 75 yo lady lives independently, suffered lacunar stroke likely related to HTN. Managing comorbidities and doing well with therapy. Will DC today, Home health and outpatinet f/u next week for hosp f/u with me and cards as well stress testing and event monitor. IM: Discharge Physical Exam - I&O/Vital Signs I&O: Intake & Output 07/01/16 07/02/16 07/02/16 21:59 05:59 13:59 Weight 68 kg Vital Signs: Last Vital Signs Temp 36.8 C 07/02/16 06:23 Pulse 91 H 07/02/16 06:23 Resp 17 07/02/16 06:23 BP 121/67 07/02/16 06:23 Pulse Ox 94 07/02/16 06:23 Oxygen Delivery Method CPAP - Constitutional General appearance: Present: average body habitus, cooperative. Absent: disheveled - Head Head exam: Present: atraumatic - Eye Eye exam: Present: EOMI - ENT ENT exam: Present: mucous membranes moist - Neck Neck exam: Present: full ROM. Absent: lymphadenopathy - Respiratory Respiratory exam: Present: CTAB - Cardiovascular Cardiovascular exam: Present: RRR - GI/Abdominal GI/Abdominal exam: Present: normal bowel sounds, soft. Absent: tenderness - Neurological Exam Neurological exam: Present: abnormal gait, alert, motor sensory deficit (4/5 right arm/leg and weakness, some dysmetria/past pointing) - Allied Health Notes Allied health notes reviewed: nursing
[2016-07-02] MEDS: LISINOPRIL 10 MG TABLET PO SCH (09:10)
[2016-07-02] MEDS: POLYETHYLENE GLYCOL 3350 17 GM POWD.PACK PO PRN (09:19)
== END 2016-07-02 09:01 | disposition home or self-care (01) | DRG 65 ==
LOC: IN 13:38
PROVIDERS: ADMIT Hospitalist; ATTEND Hospitalist
DX: I63.8 Other cerebral infarction (principal); G81.91 Hemiplegia, unspecified affecting right dominant side; I51.9 Heart disease, unspecified; I47.1 Supraventricular tachycardia; I08.1 Rheumatic disorders of both mitral and tricuspid valves; I10 Essential (primary) hypertension; E78.5 Hyperlipidemia, unspecified; E03.9 Hypothyroidism, unspecified; R73.02 Impaired glucose tolerance (oral); Z79.899 Other long term (current) drug therapy
CPT/HCPCS: 36415; 80048; 80076; 81001; 83036; 84439; 84443; 85025; 93005; A4217